=== PATIENT | female | born 1970 | race Caucasian/White ===

== ENCOUNTER 2020-07-03 11:23 | Emergency (ER) | payer OTHER ==
[~2020-07-03] VITALS: Ht 175.3 cm; Wt 167.8 kg
[2020-07-03 11:33] VITALS: BP 153/75
== END 2020-07-03 12:46 | disposition home or self-care (01) ==
LOC: ER 11:23
DX: R51.9 Headache, unspecified (principal); E11.9 Type 2 diabetes mellitus without complications; I10 Essential (primary) hypertension
CPT/HCPCS: 70450